=== PATIENT | female | born 1975 | race Caucasian/White ===

== ENCOUNTER 2016-11-30 21:26 | Emergency (ER) | payer OTHER ==
[~2016-11-30] VITALS: Ht 170.2 cm; Wt 63.5 kg
--- NOTE | ~2016-11-30 | EKG ---
PATIENT: TAMIKA BAKER UNIT #: [id number] Ventricular Rate: 56 BPM Atrial Rate: 56 BPM P-R Interval: 150 ms QRS Duration: 96 ms Q-T Interval: 392 ms QTC Calculation(Bezet): 378 ms P [place]: 71 degrees Calculated R [place]: 0 degrees Calculated T [place]: 30 degrees Diagnosis Line: Sinus bradycardia Diagnosis Line: Possible Left atrial enlargement Diagnosis Line: Low voltage QRS Diagnosis Line: Incomplete right bundle branch block Diagnosis Line: Borderline ECG Diagnosis Line: No previous ECGs available Diagnosis Line: Confirmed by SHAGUFTA BOWER MD ([id number]) on Diagnosis Line: 12/03/2016 8:04:33 PM INTERPRETING MD: AZRA
--- NOTE | ~2016-11-30 | CR72 ---
[facility] A Service of [facility] & [facility] RADIOLOGY TEXT RESULTS PATIENT: TAMIKA BAKER LOCATION: [facility] : 75 UNIT #: [id number] AGE: [address]: Tae Patel MD SEX: F ORDER DR: [id number] [facility] [address] [place], [place] [address] [id number] E MR#: [id number] Acc #: [id number] NAME: TAMIKA BAKER : 1975 SEX: F STUDY DATE/TIME: 11/30/2016 22:13 UNIT: [facility] ROOM: STUDY DESCRIPTION: CR Chest Single View Portable Attending Physician: Timmy Patel M.D. Ordering Physician: Ed Doc Barbara Herrera Primary Care Physician: No Primary Care Physician MEDICAL IMAGING REPORT This report is preliminary unless electronic signature is present EXAM Portable chest 11/30/2016 at 2213 hours INDICATIONS Left side chest pain for 1-2 days. COMPARISON 07/14/2014 FINDINGS A single AP portable view of the chest shows both lungs to be clear. The heart is normal in size. The mediastinal contour is normal. No significant bone abnormalities are seen. IMPRESSION Normal portable chest. Dictated by... Garry Atkins Jr., M.D. THIS IS AN ELECTRONICALLY VERIFIED REPORT Garry Atkins Jr., M.D. at 12/01/2016 5:53 AM RADHA/nataly TD: 12/01/2016 05:21 JOB #: [id number] MEDICAL IMAGING REPORT Page 1 of 1 COPY
[~2016-11-30 21:26] MED LIST: IBUPROFEN PO; ZYRTEC PO
== END 2016-12-01 00:36 | disposition home or self-care (01) ==
LOC: CED 21:26
DX: R07.89 Other chest pain (principal)
CPT/HCPCS: 71010; 84703; 93005; 96372; 99285; J1885